=== PATIENT | male | born 1990 | race Hispanic/Latino ===

== ENCOUNTER 2020-11-14 11:14 | Inpatient (IN) | payer BC ==
[~2020-11-14 11:14] MED LIST: Iopamidol-370 76% 500 ML 1 ML ONE
[2020-11-14 11:30] LABS: Actual Bicarbonate (HCO3a) 20.6 mEq/L (22-28); Analyzer IN Cardio ER; Base Excess (BEa) -2.4 mEq/L (-2.0 to +3.0); CO2 Tension 31.2 mmHg (35.0-45.0); Hemoglobin (Hb) 15.6 g/dL (14.0-18.0); O2 Tension (PaO2), arterial 226.8 mmHg (80.0-100.0); Potassium - ABG Lab 3.15 mmol/L (3.70-5.30); Puncture Site LBA; pH, Arterial 7.44 (7.35-7.45)
[2020-11-14] MEDS ORDERED: Fentanyl CADD 100 ML IV SCH ×2 (11:45→14:15)
[2020-11-14 11:47] LABS: Hemoglobin 16.1 g/dL (14.0-18.0); Mean Corpuscular HGB CONC 34.4 g/dL (32.0-36.0); Mean Corpuscular Hemoglobin 32.7 pg (27.0-31.0); Mean Corpuscular Volume 94.9 fL (78.0-98.0); Red Blood Cell (RBC) Count 4.91 mill/uL (4.70-6.10); White Blood Cell (WBC) Count 9.8 thou/uL (4.8-10.8)
[2020-11-14 11:59] LABS: Bacteria/HPF None Seen HPF (None Seen); Bilirubin Negative (Negative); Blood, Urine Trace (Negative); Clarity Turbid (Clear); Glucose, Urine (Dipstick) 500 mg/dL (Negative); Ketone, Urine Negative (Negative); Leukocyte Negative Leu/uL (Negative); Nitrite Negative (Negative); Protein, Urine (Dipstick) 50 mg/dL (Neg-Trace); RBC/HPF 0-3 HPF (0-3); Specific Gravity, Urine 1.009 (1.002-1.036); Squamous Epithelial None Seen HPF (0-3); Urobilinogen Normal mg/dL (Less than 2); WBC/HPF 0-3 HPF (0-3)
[2020-11-14 12:02] LABS: #Eosinphils 0.1 thou/uL (0.0-0.7); #Monocytes 0.9 thou/uL (0.11-0.59); #Neutrophils 7.9 thou/uL (1.40-6.50); %Basophils 0.2 % (0.0-1.0); %Eosinophils 0.8 % (0.0-10.0); %Lymphocytes 10.1 % (21.0-51.0); %Monocytes 8.6 % (0.0-10.0); %Neutrophils 80.2 % (42.0-75.0); Mean Platelet Volume 8.9 fL (7.4-10.4); Platelet Count 117 thou/uL (130-400); RBC Distribution Width 11.9 % (11.5-14.5)
[2020-11-14 12:07] LABS: Sperm/HPF 1+ HPF (None Seen)
[2020-11-14 12:08] LABS: Cocaine Metabolite Screen Not Detected (NotDetected); Medtox Reader # READER 4; Phencyclidine (PCP) Not Detected (NotDetected); THC/Cannabinoid Screen Detected (NotDetected)
[2020-11-14 12:09] LABS: Amphetamine Detected (NotDetected); Barbiturates Screen Not Detected (NotDetected); Benzodiazepine Screen Detected (NotDetected); Medtox Control Line Valid? VALID (VALID); Methadone Not Detected (NotDetected); Methamphetamine Detected (NotDetected); Opiate Screen Not Detected (NotDetected); Oxycodone Screen Not Detected (NotDetected); Tricyclic Screen Not Detected (NotDetected)
[2020-11-14 12:19] LABS: ALT (SGPT) 30 U/L (8-55); AST (SGOT) 47 U/L (5-34); Acetaminophen Less than 6.0 mcg/mL (10.0-30.0); Albumin 3.9 g/dL (3.5-5.0); Alcohol Less than 10 mg/dL (Less than 10); Alkaline Phosphatase 60 U/L (40-110); Anion Gap 15 mmol/L (10-20); BUN (Urea Nitrogen) 8 mg/dL (8.9-20.6); Bilirubin, Total 0.4 mg/dL (0.2-1.2); Calc. Creatinine Clearance 0 mL/min (70-130); Calcium 8.5 mg/dL (7.8-10.44); Carbon Dioxide 17 mmol/L (22-29); Chloride 105 mmol/L (98-107); Globulin 2.6 g/dL (2.4-3.5); Glucose 213 mg/dL (70-105); Potassium 3.4 mmol/L (3.5-5.1); Protein, Total 6.5 g/dL (6.0-8.3); Salicylate Less than 8.0 mg/dL (15.0-30.0); Sodium 134 mmol/L (136-145)
[2020-11-14 12:35] LABS: Platelet Morphology Comment Appears Decreased
[2020-11-14] MEDS ORDERED: Propofol 1,000 MG/100 ML VIAL IV ONE (12:43)
[2020-11-14] MEDS ORDERED: Acetaminophen 325 MG Suppository PR PRN (12:52)
[2020-11-14] MEDS ORDERED: Electrolyte Replacement Protocol 1 EACH IVPB ONE (12:52)
[2020-11-14] MEDS ORDERED: Ventilator Sedation Protocol 1 EACH FS SCH (13:00)
[2020-11-14] MEDS ORDERED: Insulin Regular 300 UNITS/3 ML VIAL SC PRN (13:07)
[2020-11-14] MEDS ORDERED: Dextrose 50% Abboject 50 ML SYRINGE SLOW IVP PRN (13:07)
[2020-11-14] MEDS ORDERED: Dextrose 5% in Water 1,000 ML IV PRN (13:07)
[2020-11-14] MEDS ORDERED: Metoclopramide HCl 10 MG/2 ML VIAL IVP PRN (13:08)
[2020-11-14] MEDS ORDERED: Midazolam HCl 2 mg/2 ml Vial ONE ×2 (13:43→14:00)
[2020-11-14 14:01] LABS: SARS-CoV-2 NAA Rapid Test Not Detected (NotDetected)
[2020-11-14] MEDS ORDERED: Acetaminophen 650 MG Suppository PR PRN (14:05)
[2020-11-14] MEDS ORDERED: Fentanyl BOLUS 250 ML IVPB PRN (14:15)
[2020-11-14] MEDS ORDERED: DISCONTINUE PREVIOUS NARCOTIC PAIN MEDICATIONS AND BENZODIAZEPINES FS SCH (14:15)
[2020-11-14] MEDS ORDERED: Electrolyte Replacement Protocol FS PRN (14:15)
[2020-11-14] MEDS ORDERED: Lorazepam 2 MG/ML VIAL SLOW IVP PRN (14:15)
[2020-11-14] MEDS ORDERED: Morphine 2 MG/ML VIAL SLOW IVP PRN (14:15)
[2020-11-14] MEDS ORDERED: Propofol BOLUS 1,000 MG/100 ML VIAL IV PRN (14:15)
[2020-11-14] MEDS ORDERED: Propofol 1,000 MG/100 ML VIAL IV PRN (14:15)
[2020-11-14] MEDS: Sodium Bicarbonate 150 MEQ in Dextrose 5% in Water 1,000 ML IV SCH (14:21)
[2020-11-14 14:29] VITALS: BP 114/76
[2020-11-14] MEDS ORDERED: Potassium Chloride 20 MEQ in Premix Bag 1 BAG IVPB SCH (14:30)
[2020-11-14 14:48] VITALS: BMI 18.1
[2020-11-14] MEDS ORDERED: Magnesium 2 GM/50 ML 2 GM in Premix Bag 1 BAG IVPB SCH (15:00)
[2020-11-14] MEDS ORDERED: Potassium Bicarbonate/Cit Ac 20 MEQ TAB PER TUBE SCH (15:00)
[2020-11-14] MEDS ORDERED: Midazolam HCl 5 mg/5 ml Vial SLOW IVP SCH (15:15)
[2020-11-14] MEDS: Ampicillin/Sulbactam 1.5 GM in Sodium Chloride 0.9% 100 ML IVPB SCH ×2 (15:46→20:43)
[2020-11-14] MEDS: Famotidine/PF 20 mg/2ml Vial SLOW IVP SCH (20:43)
[2020-11-15] MEDS: Sodium Bicarbonate 150 MEQ in Dextrose 5% in Water 1,000 ML IV SCH ×2 (01:16→11:55)
[2020-11-15] MEDS: Ampicillin/Sulbactam 1.5 GM in Sodium Chloride 0.9% 100 ML IVPB SCH ×2 (01:16→08:32)
[2020-11-15 05:06] LABS: Band 11 % (5-11); Eosinophils 1 % (0-10); Hemoglobin 15.1 g/dL (14.0-18.0); Lymphocytes 16 % (21-51); MDiff Complete? YES; Mean Corpuscular HGB CONC 33.3 g/dL (32.0-36.0); Mean Corpuscular Hemoglobin 32.5 pg (27.0-31.0); Mean Corpuscular Volume 97.6 fL (78.0-98.0); Mean Platelet Volume 9.1 fL (7.4-10.4); Monocytes 11 % (0-10); Neutrophil 59 % (42-75); Platelet Count 153 thou/uL (130-400); Platelet Morphology Comment Appears Adequate; RBC Distribution Width 11.9 % (11.5-14.5); Reactive Lymphocytes 2 % (0-10); Red Blood Cell (RBC) Count 4.64 mill/uL (4.70-6.10)
[2020-11-15 05:11] LABS: Anion Gap 11 mmol/L (10-20); BUN (Urea Nitrogen) Less than 4 mg/dL (8.9-20.6); Calc. Creatinine Clearance 119 mL/min (70-130); Calcium 8.3 mg/dL (7.8-10.44); Carbon Dioxide 28 mmol/L (22-29); Chloride 101 mmol/L (98-107); Glucose 95 mg/dL (70-105); Magnesium 2.1 mg/dL (1.6-2.6); Potassium 3.6 mmol/L (3.5-5.1); Sodium 136 mmol/L (136-145)
[2020-11-15] MEDS ORDERED: Famotidine/PF 20 mg/2ml Vial ONE (08:29)
[2020-11-15] MEDS: Famotidine/PF 20 mg/2ml Vial SLOW IVP SCH (08:33)
[2020-11-15] MEDS ORDERED: Enoxaparin Sodium 40 MG/0.4 ML SYRINGE SC SCH (09:00)
[2020-11-15 11:33] VITALS: TEMP 98.2
== END 2020-11-15 12:56 | disposition home or self-care (01) | DRG 917 ==
LOC: EDBD 11:14 → ERS 11:14 → CCU 12:46
PROVIDERS: ADMIT Family Medicine; ATTEND Family Medicine
PROC: 5A1935Z Respiratory Ventilation, Less than 24 Consecutive Hours (ICD-10-PCS; principal; 2020-11-14)
PROC: 0D9670Z Drainage of Stomach with Drainage Device, Via Natural or Artificial Opening (ICD-10-PCS; 2020-11-14)
PROC: 06HY33Z Insertion of Infusion Device into Lower Vein, Percutaneous Approach (ICD-10-PCS; 2020-11-14)
DX: T40.7X1A Poisoning by cannabis (derivatives), accidental (unintentional), initial encounter (principal); J96.01 Acute respiratory failure with hypoxia; E87.2 Acidosis; E87.1 Hypo-osmolality and hyponatremia; E87.6 Hypokalemia; Z20.822 Contact with and (suspected) exposure to COVID-19; I45.81 Long QT syndrome; F12.129 Cannabis abuse with intoxication, unspecified; F15.129 Other stimulant abuse with intoxication, unspecified; R73.9 Hyperglycemia, unspecified; Z78.1 Physical restraint status
CPT/HCPCS: 0241U; 36416; 36556; 36600; 51702; 70450; 71045; 71275; 72125; 80048; 80053; 80306; 80307; 81003; 81015; 82805; 83605; 83690; 83735; 83880; 84443; 84484; 85007; 85025; 85027; 85379; 93005; 94002; 94760; 96365; 96366; 96368; 99292; J0295; J1650; J2250; J2704; J2765; J3010; J3475; J3480; J3490; J7070; Q9967; S0028

== ENCOUNTER 2022-04-16 11:30 | Emergency (ER) | payer BC ==
[2022-04-16] MEDS ORDERED: Naloxone HCl 2 mg/2 ml Syringe ONE (11:51)
[2022-04-16 12:22] LABS: #Monocytes 1.1 thou/uL (0.11-0.59); #Neutrophils 12.1 thou/uL (1.40-6.50); %Basophils 0.1 % (0.0-1.0); %Eosinophils 0.3 % (0.0-10.0); %Lymphocytes 6.8 % (21.0-51.0); %Monocytes 7.9 % (0.0-10.0); %Neutrophils 84.9 % (42.0-75.0); Mean Corpuscular HGB CONC 34.7 g/dL (32.0-36.0); Mean Corpuscular Hemoglobin 33.6 pg (27.0-31.0); Mean Corpuscular Volume 96.9 fl (78.0-98.0); Mean Platelet Volume 8.6 fL (7.4-10.4); Platelet Count 172 10x3/uL (130-400); RBC Distribution Width 11.4 % (11.5-14.5); Red Blood Cell (RBC) Count 4.18 mill/uL (4.70-6.10); White Blood Cell (WBC) Count 14.2 10x3/uL (4.8-10.8)
[2022-04-16 12:35] LABS: Alcohol Less than 10 mg/dL (Less than 10); Salicylate Less than 8.0 mg/dL (15.0-30.0)
[2022-04-16 12:35] LABS: Bacteria/HPF None Seen HPF (None Seen); Bilirubin Negative (Negative); Blood, Urine Negative (Negative); Clarity Turbid (Clear); Glucose, Urine (Dipstick) 150 mg/dL (Negative); Ketone, Urine 40 mg/dL (Negative); Leukocyte Negative Leu/uL (Negative); Nitrite Negative (Negative); Protein, Urine (Dipstick) 50 mg/dL (Neg-Trace); RBC/HPF 0-3 HPF (0-3); Specific Gravity, Urine 1.028 (1.002-1.036); Sperm/HPF 1+ HPF (None Seen); Squamous Epithelial 0-3 HPF (0-3); Urobilinogen Normal mg/dL (Less than 2); WBC/HPF 0-3 HPF (0-3); pH, Urine 5.5 (5.0-9.0)
[2022-04-16 12:38] LABS: ALT (SGPT) 21 U/L (8-55); AST (SGOT) 19 U/L (5-34); Alkaline Phosphatase 61 U/L (40-110); Anion Gap 11 mmol/L (10-20); BUN (Urea Nitrogen) 13 mg/dL (8.9-20.6); Bilirubin, Total 0.5 mg/dL (0.2-1.2); Calc. Creatinine Clearance 0 mL/min (70-130); Calcium 7.9 mg/dL (7.8-10.44); Carbon Dioxide 20 mmol/L (22-29); Chloride 109 mmol/L (98-107); Estimated GFR 115; Globulin 2.1 g/dL (2.4-3.5); Glucose 122 mg/dL (70-105); Potassium 4.3 mmol/L (3.5-5.1); Protein, Total 6.1 g/dL (6.0-8.3); Sodium 136 mmol/L (136-145)
[2022-04-16 12:41] LABS: Amphetamine Detected (NotDetected); Barbiturates Screen Not Detected (NotDetected); Benzodiazepine Screen Detected (NotDetected); Cocaine Metabolite Screen Not Detected (NotDetected); Methadone Not Detected (NotDetected); Methamphetamine Detected (NotDetected); Opiate Screen Not Detected (NotDetected); Oxycodone Screen Not Detected (NotDetected); Phencyclidine (PCP) Not Detected (NotDetected); THC/Cannabinoid Screen Detected (NotDetected); Tricyclic Screen Not Detected (NotDetected)
[2022-04-16 13:20] LABS: Acetaminophen Less than 10.0 mcg/mL (10.0-30.0)
== END 2022-04-16 15:30 | disposition home or self-care (01) ==
LOC: ERS 11:30
DX: T50.7X1A Poisoning by analeptics and opioid receptor antagonists, accidental (unintentional), initial encounter (principal); E03.9 Hypothyroidism, unspecified
CPT/HCPCS: 36415; 80053; 80306; 80307; 81003; 81015; 85025; 93005; 96374; J2310